=== PATIENT | female | born 1960 | race Caucasian/White ===

== ENCOUNTER → 2017-03-22 | Outpatient (REF) | payer OTHER ==
[~2017-03-22] MED LIST: GLUC500T PO; LEVO150T PO; Lisinopril/HCTZ PO; Loratadine PO; MOTR200T4 PO
== END ==
LOC: M LAB REF 13:17
PROVIDERS: ATTEND Advanced Practice Midwife
DX: Z01.419 Encounter for gynecological examination (general) (routine) without abnormal findings (principal); Z11.51 Encounter for screening for human papillomavirus (HPV); N88.8 Other specified noninflammatory disorders of cervix uteri

== ENCOUNTER 2018-02-08 15:27 | Emergency (ER) | payer OTHER ==
[2018-02-08 16:14] LABS: BASO # 0.1 10^3/uL (0.0-0.2); BASO % 0.5 % (0.0-1.0); EOS # 0.4 10^3/uL (0.0-0.50); EOS % 2.5 % (0.0-3.0); HEMATOCRIT 41.9 % (36.0-47.0); HEMOGLOBIN 14.5 g/dl (12.0-15.5); IMMATURE GRANULOCYTE % 0.6 % (0-3.0); LYMPH # 1.9 10^3/uL (1.5-4.5); LYMPH % 13.4 % (24.0-44.0); MEAN CORPUSCULAR HGB CONC 34.6 g/dl (32.0-36.5); MEAN CORPUSCULAR VOLUME 86.6 fl (80.0-96.0); MONO # 0.8 10^3/uL (0.0-0.8); MONO % 5.8 % (0.0-5.0); NEUTROPHILS # 10.9 10^3/uL (1.8-7.7); NEUTROPHILS % 77.2 % (36.0-66.0); PLATELET COUNT, AUTOMATED 289 10^3/uL (150-450); RED BLOOD COUNT 4.84 10^6/uL (4.00-5.40); RED CELL DISTRIBUTION WIDTH 12.1 % (11.5-14.5); WHITE BLOOD COUNT 14.1 10^3/uL (4.0-10.0)
[2018-02-08 16:42] LABS: ANION GAP 11 MEQ/L (8-16); BLOOD UREA NITROGEN 11 MG/DL (7-18); CALCIUM LEVEL 9.6 MG/DL (8.5-10.1); CARBON DIOXIDE LEVEL 25 MEQ/L (21-32); CHLORIDE LEVEL 102 MEQ/L (98-107); CPK CREATINE PHOSPHOKINASE 38 U/L (26-192); CREATININE FOR GFR 0.79 MG/DL (0.55-1.30); GLOMERULAR FILTRATION RATE > 60.0 (>51); GLUCOSE, FASTING 164 MG/DL (70-100); POTASSIUM SERUM 3.6 MEQ/L (3.5-5.1); SODIUM LEVEL 138 MEQ/L (136-145); TROPONIN I < 0.02 NG/ML (< 0.10)
[2018-02-08] MEDS: MECLIZINE 25 MG TABLET PO (16:45)
[2018-02-08] MEDS: ONDANSETRON 4MG/2ML VIAL (J2405) IV (16:45)
[2018-02-08 16:48] LABS: CK-MB VALUE MASS 1.1 NG/ML (<3.6); MB/CK RELATIVE INDEX 2.89 (< OR =4)
[2018-02-08] MEDS: KETOROLAC 30 MG/ML VIAL (J1885) IV (18:31)
[2018-02-08 18:47] LABS: LACTIC ACID SEPSIS PROTOCOL 1.7 MMOL/L (0.4-2.0)
== END 2018-02-08 20:24 | disposition home or self-care (01) ==
LOC: M ED 15:27
DX: R42 Dizziness and giddiness (principal); R51 Headache; R00.1 Bradycardia, unspecified; Z83.49 Family history of other endocrine, nutritional and metabolic diseases; Z79.899 Other long term (current) drug therapy
CPT/HCPCS: J2405

== ENCOUNTER → 2020-04-26 | Outpatient (CLI) | payer SELFPAY ==
[~2020-04-26] MED LIST changes: +INVO100T PO; +LEVO125T4 PO; +MECL1TAB31 PO; +METF500T13 PO; +MULT200T7 PO; +VITACAP9 PO; +ZOFR4TAB14 PO
== END ==
LOC: M LABSMTC 09:27
PROVIDERS: ATTEND Pediatrics
DX: Z20.828 Contact with and (suspected) exposure to other viral communicable diseases (principal)

== ENCOUNTER → 2020-06-18 | Outpatient (REF) | payer OTHER | LOC: M SFHCWAGY 13:04 | PROVIDERS: ATTEND Advanced Practice Midwife | DX: Z12.4 Encounter for screening for malignant neoplasm of cervix (principal) ==

== ENCOUNTER → 2023-04-17 | Outpatient (REF) | payer OTHER | LOC: M SFHCWAGY 13:29 | PROVIDERS: ATTEND Nurse Practitioner Family | DX: Z12.4 Encounter for screening for malignant neoplasm of cervix (principal) | CPT/HCPCS: 87624; G0123 ==

== ENCOUNTER 2023-06-09 07:40 | Day surgery (SDC) | payer OTHER ==
[~2023-06-09] VITALS: Ht 162.6 cm; Wt 86.2 kg
[~2023-06-09 07:40] MED LIST changes: +B-1225002 SL; +FERR32TA PO; +MECL-209 PO; -MECL1TAB31 PO; +NS 1,000 ML IV ONE
[2023-06-09 08:45] VITALS: BP 101/56; O2SAT 98
[2023-06-09] MEDS ORDERED: propofoL 200 MG/20 ML VIAL As Ordered ONE (10:45)
== END 2023-06-09 08:53 | disposition home or self-care (01) ==
LOC: M OPP 07:40
PROVIDERS: ATTEND Internal Medicine Gastroenterology
DX: Z12.11 Encounter for screening for malignant neoplasm of colon (principal); Z86.010 Personal history of colon polyps; K64.8 Other hemorrhoids; K63.5 Polyp of colon; E11.9 Type 2 diabetes mellitus without complications; Z79.84 Long term (current) use of oral hypoglycemic drugs; Z79.890 Hormone replacement therapy; Z79.899 Other long term (current) drug therapy